=== PATIENT | female | born 1970 | race Caucasian/White ===

== ENCOUNTER → 2016-05-14 | Outpatient (REF) | payer OTHER ==
[~2016-05-14] MED LIST: /ATOR40TA PO; BYET10IN SC; COLA100C2; GLUC1000; IBUP800T; LISI5TAB; PERCOCET PO; TYLE325T5 PO; VICO5TAB; ZOCO40TA; aleve PO; byetta; yaz PO
== END ==
LOC: M SFHCLERA 13:41
PROVIDERS: ATTEND Physician Assistant
DX: J02.9 Acute pharyngitis, unspecified (principal)

== ENCOUNTER 2017-02-07 18:04 | Emergency (ER) | payer OTHER ==
[~2017-02-07] VITALS: Ht 167.6 cm; Wt 66.8 kg
[2017-02-07 18:39] LABS: BASO # 0.1 10^3/uL (0.0-0.2); BASO % 0.6 % (0.0-1.0); EOS # 0.1 10^3/uL (0.0-0.50); EOS % 0.7 % (0.0-3.0); IMMATURE GRANULOCYTE % 0.3 % (0-0); LYMPH # 2.8 10^3/uL (1.5-4.5); LYMPH % 28.1 % (24.0-44.0); MEAN CORPUSCULAR HEMOGLOBIN 29.6 pg (27.0-33.0); MEAN CORPUSCULAR HGB CONC 33.4 g/dl (32.0-36.5); MEAN CORPUSCULAR VOLUME 88.7 fl (80.0-96.0); MONO # 0.7 10^3/uL (0.0-0.8); MONO % 6.7 % (0.0-5.0); NEUTROPHILS # 6.4 10^3/uL (1.8-7.7); NEUTROPHILS % 63.6 % (36.0-66.0); PLATELET COUNT, AUTOMATED 306 10^3/uL (150-450); RED CELL DISTRIBUTION WIDTH 12.9 % (11.5-14.5)
[2017-02-07 18:41] LABS: ADD MORPHOLOGY? NO
[2017-02-07] MEDS ORDERED: GLIP5TAB8 PO (18:59)
[2017-02-07] MEDS ORDERED: METF500T4 PO (18:59)
[2017-02-07] MEDS ORDERED: INVO300T PO (18:59)
[2017-02-07] MEDS ORDERED: TYLE325T5 PO (18:59)
[2017-02-07 19:17] LABS: ANION GAP 8 MEQ/L (8-16); BLOOD UREA NITROGEN 15 MG/DL (7-18); CALCIUM LEVEL 9.4 MG/DL (8.5-10.1); CARBON DIOXIDE LEVEL 28 MEQ/L (21-32); CHLORIDE LEVEL 101 MEQ/L (98-107); CREATININE FOR GFR 0.62 MG/DL (0.55-1.02); GLOMERULAR FILTRATION RATE > 60.0 (>58); GLUCOSE, FASTING 130 MG/DL (70-105); POTASSIUM SERUM 3.8 MEQ/L (3.5-5.1); SODIUM LEVEL 137 MEQ/L (136-145)
[2017-02-07] MEDS ORDERED: HALOPERIDOL 5 MG/ML VIAL (J1630) IV STA (20:41)
[2017-02-07] MEDS ORDERED: diphenhydrAMINE INJ 50MG/ML VIAL (J1200) IV STA ×2 (20:41→21:53)
[2017-02-07] MEDS ORDERED: NS 1,000 ML IV ONE (20:45)
[2017-02-07] MEDS ORDERED: ISOVUE-370 76% 100ML VIAL (Q9967) As Ordered ONE (23:26)
--- NOTE | 2017-02-08 00:20 | REPUSA ---
CLINICAL HISTORY: Vertigo. TECHNIQUE: Multiple axial CT images were obtained through brain without and with IV contrast material . COMMENTS: The study shows normal configuration of sella turcica. There are no intra or extra-axial collections. There is no mass effect or midline shift. There is no evidence of hematoma formation. No hydrocephal us is present. The ventricles are symmetrical. There is no parenchymal atrophy. No abnormal calcifications are prese nt. No significant abnormalities are seen either in the posterior fossa or supratentorial compartment . Post contrast images demonstrate no evidence for abnormal enhancement. IMPRESSION: Normal study. Thank you for your kind referral of this patient.
[2017-02-08 01:26] VITALS: BP 115/58
--- NOTE | 2017-02-09 05:58 | ECGEPIP ---
Stationary ECG Study [facility] - ED Test Date: 2017-02-07 Pat Name: RAUDEL SILVA Department: Room: - Gender: F Quarter Trimmer: michelle : 1970 Requested By: JASPREET Pond Order Number: [id number] Reading MD: Cade Duran Measurements Intervals [place] Rate: 87 P: 36 CA: 193 QRS: -3 QRSD: 97 T: 5 QT: 375 QTc: 452 Interpretive Statements SINUS RHYTHM POSSIBLE ANTERIOR MYOCARDIAL INFARCTION, PROBABLY OLD SIMILAR TO 04/12/15 Electronically Signed On 02-09-2017 5:57:56 EDT by Cade Duran
== END 2017-02-08 01:30 | disposition home or self-care (01) ==
LOC: M ED 18:04
DX: H81.10 Benign paroxysmal vertigo, unspecified ear (principal); E11.9 Type 2 diabetes mellitus without complications; Z79.899 Other long term (current) drug therapy; Z79.84 Long term (current) use of oral hypoglycemic drugs
CPT/HCPCS: 70470; 80048; 82550; 82553; 85025; 93005; 93041; 94760; 96361; 96374; 96375; 96376; 99285; J1200; J1630; Q9967

== ENCOUNTER → 2017-10-20 | Outpatient (CLI) | payer OTHER | LOC: M WUC 14:50 | DX: M79.671 Pain in right foot (principal) | CPT/HCPCS: 73630 ==

== ENCOUNTER 2017-10-22 18:17 | Emergency (ER) | payer OTHER | END 2017-10-22 23:07 | disposition home or self-care (01) | LOC: M ED 18:17 | DX: S99.921A Unspecified injury of right foot, initial encounter (principal); W22.09XA Striking against other stationary object, initial encounter; Y92.89 Other specified places as the place of occurrence of the external cause; I10 Essential (primary) hypertension; E11.9 Type 2 diabetes mellitus without complications; R51 Headache; Z79.899 Other long term (current) drug therapy; Z79.84 Long term (current) use of oral hypoglycemic drugs | CPT/HCPCS: 73630 ==

== ENCOUNTER → 2018-02-13 | Outpatient (CLI) | payer OTHER | LOC: M WUC 08:52 | DX: S50.01XA Contusion of right elbow, initial encounter (principal); X58.XXXA Exposure to other specified factors, initial encounter; Y92.9 Unspecified place or not applicable | CPT/HCPCS: 73080 ==

== ENCOUNTER 2020-05-25 17:37 | Emergency (ER) | payer OTHER ==
[~2020-05-25] VITALS: Ht 167.6 cm; Wt 81.2 kg
[~2020-05-25 17:37] MED LIST changes: -/ATOR40TA PO; +GLIP5TAB8 PO; +INVO300T PO; +JANU100T; +LIPI1TAB2 PO; +METF-838 PO; +OXYC1TAB23 PO; -PERCOCET PO
--- OUTSIDE RECORDS SUMMARY | 2020-05-25 17:46 | CCD ---
Author Author [facility] Organization [facility] Address Unknown Phone Unavailable Care Team Providers Care Systems Software Specialist Name Role Phone MARIUSZRE Unavailable Unavailable TONTARSGENE G ROSI PA Unavailable Unavailable TONTARSGENE G ROSI PA Unavailable Unavailable TONTARSGENE G ROSI PA Unavailable Unavailable TONTARSGENE G ROSI PA Unavailable Unavailable TONTARSKI G ROSI PA Unavailable Unavailable TONTARSGENE G ROSI PA Unavailable Unavailable TONTARSGENE G ROSI PA Unavailable Unavailable TONTARSGENE G ROSI PA Unavailable Unavailable TONTARSKI, G ROSI PA Unavailable Unavailable TONTARSGENE, G ROSI PA Unavailable Unavailable TONTARSKI, G ROSI PA Unavailable Unavailable TONTARSGENE, G ROSI PA Unavailable Unavailable TONTARSGENE, G ROSI PA Unavailable Unavailable TONTARSGENE, G ROSI PA Unavailable Unavailable TONTARSGENE, G ROSI PA Unavailable Unavailable TONTARSGENE, G ROSI PA Unavailable Unavailable TONTARSGENE, G ROSI PA Unavailable Unavailable TONTARSGENE, G ROSI PA Unavailable Unavailable TONTARSGENE, G ROSI PA Unavailable Unavailable TONTARSGENE, G ROSI PA Unavailable Unavailable TONTARSGENE, G ROSI PA Unavailable Unavailable TONTARSGENE, G ROSI PA Unavailable Unavailable TONTARSGENE, G ROSI PA Unavailable Unavailable TONTARSGENE, G ROSI PA Unavailable Unavailable TONTARSGENE, G ROSI PA Unavailable Unavailable TONTARSGENE, G ROSI PA Unavailable Unavailable TONTARSGENE, G ROSI PA Unavailable Unavailable TONTARSGENE, G ROSI PA Unavailable Unavailable TONTARSGENE, G ROSI PA Unavailable Unavailable TONTARSGENE, G ROSI PA Unavailable Unavailable TONTARSGENE, G ROSI PA Unavailable Unavailable TONTARSGENE, G ROSI PA Unavailable Unavailable TONTARSGENE, G ROSI PA Unavailable Unavailable TONTARSGENE, G ROSI PA Unavailable Unavailable TONTARSGENE, G ROSI PA Unavailable Unavailable TONTARSGENE, G ROSI PA Unavailable Unavailable TONTARSGENE, G ROSI PA Unavailable Unavailable TONTARSGENE, G ROSI PA Unavailable Unavailable TONTARSGENE, G ROSI PA Unavailable Unavailable TONTARSGENE, G ROSI PA Unavailable Unavailable TONTARSGENE, G ROSI PA Unavailable Unavailable TONTARSGENE, G ROSI PA Unavailable Unavailable TONTARSGENE, G ROSI PA Unavailable Unavailable TONTARSGENE, G ROSI PA Unavailable Unavailable TONTARSGENE, G ROSI PA Unavailable Unavailable TONTARSGENE, G ROSI PA Unavailable Unavailable TONTARSGENE, G ROSI PA Unavailable Unavailable TONTARSGENE, G ROSI PA Unavailable Unavailable TONTARSGENE, G ROSI PA Unavailable Unavailable TONTARSGENE, G ROSI PA Unavailable Unavailable TONTARSGENE, G ROSI PA Unavailable Unavailable TONTARSGENE, G ROSI PA Unavailable Unavailable TONTARSGENE, G ROSI PA Unavailable Unavailable TONTARSGENE, G ROSI PA Unavailable Unavailable TONTARSGENE, G ROSI PA Unavailable Unavailable TONTARSGENE, G ROSI PA Unavailable Unavailable TONTARSGENE, G ROSI PA Unavailable Unavailable TONTARSKI, G ROSI PA Unavailable Unavailable TONTARSGENE, G ROSI PA Unavailable Unavailable TONTARSGENE, G ROSI PA Unavailable Unavailable TONTARSGENE, G ROSI PA Unavailable Unavailable TONTARSGENE, G ROSI PA Unavailable Unavailable TONTARSGENE, G ROSI PA Unavailable Unavailable TONTARSGENE, G ROSI PA Unavailable Unavailable TONTARSGENE, G ROSI PA Unavailable Unavailable TONTARSGENE, G ROSI PA Unavailable Unavailable TONTARSGENE, G ROSI PA Unavailable Unavailable TONTARSGENE, G ROSI PA Unavailable Unavailable TONTARSGENE, G ROSI PA Unavailable Unavailable TONTARSGENE, G ROSI PA Unavailable Unavailable TONTARSGENE, G ROSI PA Unavailable Unavailable TONTARSGENE, G ROSI PA Unavailable Unavailable TONTARSGENE, G ROSI PA Unavailable Unavailable TONTARSGENE, G ROSI PA Unavailable Unavailable TONTARSGENE, G ROSI PA Unavailable Unavailable TONTARSGENE, G ROSI PA Unavailable Unavailable TONTARSGENE, G ROSI PA Unavailable Unavailable TONTARSGENE, G ROSI PA Unavailable Unavailable TONTARSGENE, G ROSI PA Unavailable Unavailable TONTARSGENE, G ROSI PA Unavailable Unavailable TONTARSGENE, G ROSI PA Unavailable Unavailable TONTARSGENE, G ROSI PA Unavailable Unavailable TONTARSGENE, G ROSI PA Unavailable Unavailable TONTARSGENE, G ROSI PA Unavailable Unavailable TONTARSGENE, G ROSI PA Unavailable Unavailable TONTARSGENE, G ROSI PA Unavailable Unavailable TONTARSGENE, G ROSI PA Unavailable Unavailable TONTARSGENE, G ROSI PA Unavailable Unavailable TONTARSGENE, G ROSI PA Unavailable Unavailable TONTARSGENE, G ROSI PA Unavailable Unavailable TONTARSGENE, G ROSI PA Unavailable Unavailable TONTARSGENE, G ROSI PA Unavailable Unavailable TONTARSKI, G ROSI PA Unavailable Unavailable TONMARV, G ROSI PA Unavailable Unavailable MARIE, CHRIS PA Unavailable Unavailable MARIE, CHRIS PA Unavailable Unavailable MARIE, CHRIS PA Unavailable Unavailable MARIE, CHRIS PA Unavailable Unavailable MARIE, CHRIS PA Unavailable Unavailable MARIE, CHRIS PA Unavailable Unavailable MARIE, CHRIS PA Unavailable Unavailable MARIE, CHRIS PA Unavailable Unavailable MARIE, CHRIS PA Unavailable Unavailable MARIE, CHRIS PA Unavailable Unavailable MARIE, CHRIS PA Unavailable Unavailable MARIE, CHRIS PA Unavailable Unavailable MARIE, CHRIS PA Unavailable Unavailable MARIE, CHRIS PA Unavailable Unavailable MARIE, CHRIS PA Unavailable Unavailable MARIE, CHRIS PA Unavailable Unavailable MARIE, CHRIS PA Unavailable Unavailable MARIE, CHRIS PA Unavailable Unavailable MARIE, CHRIS PA Unavailable Unavailable MARIE, CHRIS PA Unavailable Unavailable MARIE, CHRIS PA Unavailable Unavailable MARIE, CHRIS PA Unavailable Unavailable MARIE, CHRIS PA Unavailable Unavailable MARIE, CHRIS PA Unavailable Unavailable MARIE, CHRIS PA Unavailable Unavailable MARIE, CHRIS PA Unavailable Unavailable MARIE, CHRIS PA Unavailable Unavailable MARIE, CHRIS PA Unavailable Unavailable MARIE, CHRIS PA Unavailable Unavailable MARIE, CHRSI PA Unavailable Unavailable MARIE, CHRIS PA Unavailable Unavailable MARIE, CHRIS PA Unavailable Unavailable MARIE, CHRIS PA Unavailable Unavailable MARIE, CHRIS PA Unavailable Unavailable MARIE, CHRIS PA Unavailable Unavailable JAVIER LYLES Unavailable Unavailable WILLY CELESTE M.D. Unavailable WILLY CELESTE M.D. Unavailable WILLY CELESTE M.D. Unavailable Re-disclosure Warning The records that you are about to access may contain information from federally-assisted alcohol or drug abuse programs. If such information is present, then the following federally mandated warning applies: This information has been disclosed to you from records protected by federal confidentiality rules (42 CFR part 2). The federal rules prohibit you from making any further disclosure of this information unless further disclosure is expressly permitted by the written consent of the person to whom it pertains or as otherwise permitted by 42 CFR part 2. A general authorization for the release of medical or other information is NOT sufficient for this purpose. The Federal rules restrict any use of the information to criminally investigate or prosecute any alcohol or drug abuse patient.The records that you are about to access may contain highly sensitive health information, the redisclosure of which is protected by Article 27-F of the [facility] Public Health law. If you continue you may have access to information: Regarding HIV / AIDS; Provided by facilities licensed or operated by the [facility] Office of Mental Health; or Provided by the [facility] Office for People With Developmental Disabilities. If such information is present, then the following [facility] mandated warning applies: This information has been disclosed to you from confidential records which are protected by state law. State law prohibits you from making any further disclosure of this information without the specific written consent of the person to whom it pertains, or as otherwise permitted by law. Any unauthorized further disclosure in violation of state law may result in a fine or mcc sentence or both. A general authorization for the release of medical or other information is NOT sufficient authorization for further disc losure. Allergies and Adverse Reactions Type Description Substance Reaction Status Data Source(s ) Drug Class NO KNOWN ALLERGIES NO KNOWN ALLERGIES [facility] Family History Family Member Name Family Member Gender Family Member Status Date o f Status Description Data Source(s) Unknown Unknown Problem MEDENT ([facility] pgf Unknown Male Problem MEDENT ([facility]) Encounters Encounter Providers Location Date Indications Data Source(s ) Outpatient Attender: WILLY CELESTE M.D.Stenotype Operator: JOAQUIN PEÑALOZA 03/15/2020 11:08:00 AM [facility] 03/15/2020 12:08:00 PM [facility] Outpatient Attender: CHRIS PEÑALOZA 10/21/2019 12:00:0 0 AM [facility] Outpatient Attender: JAVIER LYLES 08/21/2019 12:00:00 A M [facility] Outpatient Attender: RE VEEReferrer: ROSI PEÑALOZA [id number] 07/16/2019 12:00:00 AM [facility] Medications Medication Brand Name Start Date Product Form Dose Route Admi nistrative Instructions Pharmacy Instructions Status Indications Reaction Description Data Source(s) Insulin Pen Needle 31G X 6 MM [id number] 07/16/2019 12:00:00 AM EDT active Type 2 diabetes mellitus with hyperglycemia, without long-term current use of insulin Use as directed. daily [facility] Type 2 diabetes mellitus with hyperglyce tristen, without long-term current use of insulin 3 ML Insulin Glargine 100 UNT/ML Pen Inj jorge Insulin Glargine 100 UNIT/ML Subcutaneous Solution Pen-injector (Lantus SoloStar) Insulin Glargine 100 UNIT/ML Subcutaneous Solution Pen-injector (Lantus SoloStar) 07/16/2019 12:00:00 AM EDT active Type 2 elie betes mellitus with hyperglycemia, without long-term current use of insulin 16 units at night [facility] Type 2 diabetes mellitus with hyperglyce tristen, without long-term current use of insulin 3 ML Insulin Glargine 100 UNT/ML Pen Inj jorge Insulin Glargine 100 UNIT/ML Subcutaneous Solution Pen-injector (Lantus SoloStar) Insulin Glargine 100 UNIT/ML Subcutaneous Solution Pen-injector (Lantus SoloStar) 07/16/2019 12:00:00 AM EDT aborted Type 2 elie betes mellitus with hyperglycemia, without long-term current use of insulin 16 units at night [facility] Type 2 diabetes mellitus with hyperglyce tristen, without long-term current use of insulin 24 HR Metformin hydrochloride 500 MG Ext ended Release Oral Tablet metformin (GLUCOPHAGE-XR) 500 MG 24 hr tablet metformin (GLUCOPHAGE-XR) 500 MG 24 hr tablet 500 mg Oral aborted Take 500 mg by mouth Two times daily with meals [facility] Insurance Providers Payer name Policy type / Coverage type Policy ID Covered libertarian ID Covered libertarian's relationship to ibarra Policy Ibarra Plan Information [employer] [id number] Self [id number] [id number] Family Dependent [id number] [facility] Services () Workers Compensation [id number] Self [id number] [employer] [id number] S [id number] [employer] [id number] Family Dependent [id number] [employer] [id number] Family Dependent [id number] [employer] [id number] Family Dependent [id number] [employer] [place] [id number] [employer] [id number] Family Dependent [id number] [employer] [place] [id number] S [id number] [place] [employer] - O/P [id number] [facility] CLAIMS CRISELDA-O/P [id number] Problems, Conditions, and Diagnoses Code Display Name Description Problem Type Effective Dates Data Source(s) Z0184 Encounter for antibody response examinat ion Encounter for antibody response examination Diagnosis 03/15/2020 11:08:00 AM [facility] Surgeries/Procedures Procedure Description Date Indications Data Source(s) POCT HEMOGLOBIN A1C, DOCKED POCT HEMOGLOBIN A1C, DOCKED Routine 07/16/2019 8:41 AM EDT 07/16/2019 12:41:00 PM EDT [facility] POCT GLUCOSE, DOCKED POCT GLUCOSE, DOCKED Routine 07/16/2019 8:39 AM EDT 07/16/2019 12:39:00 PM [facility] Results ID Date Data Source [id number] 04/13/2020 12:00:00 AM EST [facility] Name Value Range Interpretation Code Description Data Faye rce(s) Supporting Document(s) SARS coronavirus 2 RNA [Presence] in Res piratory specimen by SCOTT with probe detection [facility] This lab was ordered by Yaw Beal and reported by [facility]. ID Date Data Source [id number] 03/17/2020 08:32:00 PM [facility] Name Value Range Interpretation Code Description Data Faye rce(s) Supporting Document(s) Varicella zoster virus IgM Ab [Units/volume] in Serum by Immunoassay <0.91 index 0.00-0.90 [facility] Negative <0.91 Borderline 0.91 - 1.09 Positive >1.09 ID Date Data Source [id number] 03/17/2020 08:29:00 AM [facility] Name Value Range Interpretation Code Description Data Faye rce(s) Supporting Document(s) Measles virus IgG Ab [Units/volume] in Serum by Immunoassay <13.5 AU/mL Immune >16.4 L [facility] Negative <13.5 Equivocal 13.5 - 16.4 Positive >16.4 Presence of antibodies to Rubeola is presumptive evidence of immunity except when acute infection is suspected. ID Date Data Source [id number] 03/17/2020 08:29:00 AM [facility] Name Value Range Interpretation Code Description Data Faye rce(s) Supporting Document(s) Mumps virus IgG Ab [Units/volume] in Serum by Immunoassay <9 .0 AU/mL Immune >10.9 L [facility] Negative <9.0 Equivocal 9.0 - 10.9 Positive >10.9 A positive result generally indicates past exposure to Mumps virus or previous vaccination. ID Date Data Source [id number] 03/15/2020 02:47:00 PM [facility] Value Range Interpretation Code Description Data Faye rce(s) Supporting Document(s) Rubella virus IgG Ab [Units/volume] in Serum 34.010 IU/ml [facility] REACTI VE \BLDo\Rubella Immunity Interpretation\BLDx\ Non-reactive: <10 IU/mL Reactive: greater than or equal to 10 IU/mL A reactive result is presumptive evidence of immunity to Rubella, except when acute infection is suspected. ID Date Data Source [id number] 03/23/2020 06:36:00 AM [facility] Value Range Interpretation Code Description Data Faye rce(s) Supporting Document(s) Varicella zoster virus IgG Ab [Units/volume] in Serum by Imm unoassay 671 index Immune >165 [facility] Negative <135 Equivocal 135 - 165 Positive >165 A positive result generally indicates exposure to the pathogen or administration of specific immunoglobulins, but it is not indication of active infection or stage of disease. ID Date Data Source [id number] 07/16/2019 11:30:43 AM [facility] Name Value Range Interpretation Code Description Data Faye rce(s) Supporting Document(s) Albumin [Mass/volume] in Serum or Plasma by Bromocresol green (BCG) dye binding method 4.4 g/dL 3.5-5.2 [facility] Bil[facility].total [Mass/volume] in Serum or Plasma 0.2 mg/dL <1.2 [facility] Calcium [Mass/volume] in Serum or Plasma 10.0 mg/dL 8.6-10.0 [facility] Chloride [Moles/volume] in Serum or Plasma 99 mmol/L 98-107 [facility] Creatinine [Mass/volume] in Serum or Plasma 0.67 mg/dL 0.50-0.90 [facility] Glucose [Mass/volume] in Serum or Plasma 262 mg/dL 70-140 H [facility] Alkaline phosphatase [Enzymatic activity/volume] in Serum or Plasma 138 U/L 35-104 H [facility] Potassium [Moles/volume] in Serum or Plasma 4.6 mmol/L 3.4-5.1 [facility] Protein [Mass/volume] in Serum or Plasma 7.7 g/dL 6.4-8.3 [facility] Sodium [Moles/volume] in Serum or Plasma 133 mmol/L 136-145 L [facility] Aspartate aminotransferase [Enzymatic activity/volume] in Serum or Plasma 13 U/L <32 [facility] Urea nitrogen [Mass/volume] in Serum or Plasma 19 mg/dL 6-20 [facility] Osmolality of Serum or Plasma by calculation 288 mosm/kg 275-300 [facility] Creatinine/Urea nitrogen [Mass Ratio] in Serum or Plasma 29 [facility] Bicarbonate [Moles/volume] in Serum 22 mmol/L 22-29 [facility] Alanine aminotransferase [Enzymatic activity/volume] in Seru m or Plasma 30 U/L <33 [facility] Anion gap 3 in Serum or Plasma 12 mmol/L 8-15 [facility] Albumin/Globulin [Mass Ratio] in Serum or Plasma 1.3 [facility] Glomerular filtration rate/1.73 sq M pre dicted among non-blacks [Volume Rate/Area] in Serum or Plasma by Creatinine-based formula (MDRD) >6 0 [facility] Glomerular filtration rate/1.73 sq M pre dicted among blacks [Volume Rate/Area] in Serum or Plasma by Creatinine-based formula (MDRD) >60 [facility] ID Date Data Source [id number] 07/16/2019 11:14:08 AM [facility] Name Value Range Interpretation Code Description Data Faye rce(s) Supporting Document(s) Microalbumin [Mass/volume] in Urine [facility] Creatinine [Mass/volume] in Urine 26.0 mg/dl [facility] Albumin/Creatinine [Mass Ratio] in Urine <20.0 [facility] ID Date Data Source [id number] 07/16/2019 09:36:08 AM EDT [facility] Name Value Range Interpretation Code Description Data Faye rce(s) Supporting Document(s) Progress Note [facility] [id number]/ROBbdRPHkj7MwHBorMUt2TKjlCNWqL9AwNQD4rL4gWGL2NHbOAfOeFcEeMcUu lbm QiWdsVQhLaMVIuYtmMLgYeRCveZbcgfUDdZS4NcUD8UYLlA19iHOHlCDZpL1NgVAW2KzX+Hr1YTXVpgQ JqXX1HCaxN8KiMcdsNKB2TvS/HdGFPJ2NnFmFVgtYYVZnJVNEgulCojxQCEJdAbluKs15u1++cJKs8+s MAv8EhJNjLeDD2CH72KzuO9d+/qtJ1ItgY/B246RJl +iPx17+S0YDsP0cMB0ioysIXHIfLxpKpWY7bCT7Sy8DoXtqft3MG7auTp2KlVQinV9s4nahi1tqtbz9A 2kF62L1ol0irSR5/Or+6EMYPpePLzz//LHr/EZ2e+BqbziE4Om5xD8y0ofUIXLmFSABvc8F1b7KJXS0c Cq91K9By5bFgpnoQYgnfvL55eAzafcRpb7VkWnV4nW s/wt5dCJxSo1CYh6MMhtlKXCeX/Nrs704p8Wl5tZgx1S0Trq8degwc3id7JdsZqewOChbJT1noLMEyqu kKczzJEoSVNKWByDXudvpj4WlB/ht1NRXJ99BV5/w0HkTI0EVny/CovrfjxncKigtaWLTQ1y3dK4DGXY Xi5DZgIrj9ntY98+BxP68tJ4In42/x0eWuAUptRm13 UD6P48OpmkAyhbfcJMKlh7cCheBmNO8ueFJFD7WH24oN7SU6onD8cciVa9Dx1TlIyIixVqJ+fFTk9eNd jMHJ83LWbVM4t7eWEMWr54yP9l0b7TDKDOdcWIqQK1GjhpoZS3q91YIFTjLsgPNGWhwYK13utHKSg38T 4zPF6xMczjjO1IPtS/bWCJxPz8DvbbSPLsp5IJiVXp F6eSH80XAaMbLe0GFNp5q9EyRM5eDfIG9XeasfrxFpvrWNh+paula/UwiOBRejfC9bA4sIs2g6UG8qcz/D [file] ICAgICAgICAgICAgICAgICAgICAgICAgICAgICAgICAgICAgICAgICAgICAgICAgICAgICAgICAgICAg ICAgICAgICAgICAgICAgDQogICAgICAgICAgICAgICAgICAgICAgICAgICAgICAgICAgICAgICAgICAg ICAgICAgICAgICAgICAgICAgICAgICAgICAgICAgIC AgICAgICAgICAgICAgICAgICAgICAgICAgDQogICAgICAgICAgICAgICAgICAgICAgICAgICAgICAgIC AgICAgICAgICAgICAgICAgICAgICAgICAgICAgICAgICAgICAgICAgICAgICAgICAgICAgICAgICAgIC AgICAgICAgDQogICAgICAgICAgICAgICAgICAgICAg ICAgICAgICAgICAgICAgICAgICAgICAgICAgICAgICAgICAgICAgICAgICAgICAgICAgICAgICAgICAg ICAgICAgICAgICAgICAgICAgDQogICAgICAgICAgICAgICAgICAgICAgICAgICAgICAgICAgICAgICAg ICAgICAgICAgICAgICAgICAgICAgICAgICAgICAgIC AgICAgICAgICAgICAgICAgICAgICAgICAgICAgDQogICAgICAgICAgICAgICAgICAgICAgICAgICAgIC AgICAgICAgICAgICAgICAgICAgICAgICAgICAgICAgICAgICAgICAgICAgICAgICAgICAgICAgICAgIC AgICAgICAgICAgDQogICAgICAgICAgICAgICAgICAg ICAgICAgICAgICAgICAgICAgICAgICAgICAgICAgICAgICAgICAgICAgICAgICAgICAgICAgICAgICAg ICAgICAgICAgICAgICAgICAgICAgDQogICAgICAgICAgICAgICAgICAgICAgICAgICAgICAgICAgICAg ICAgICAgICAgICAgICAgICAgICAgICAgICAgICAgIC AgICAgICAgICAgICAgICAgICAgICAgICAgICAgICAgDQogICAgICAgICAgICAgICAgICAgICAgICAgIC AgICAgICAgICAgICAgICAgICAgICAgICAgICAgICAgICAgICAgICAgICAgICAgICAgICAgICAgICAgIC AgICAgICAgICAgICAgDQogICAgICAgICAgICAgICAg ICAgICAgICAgICAgICAgICAgICAgICAgICAgICAgICAgICAgICAgICAgICAgICAgICAgICAgICAgICAg LVSbMTLwWJEjDLQtHJMoKNBnYAFbAOFsYKt1K1qtVPLrOFXwTQ9kKLo5Lw3+XDmEJjDdNSJ4iwEzuU8Z OS7jp6EbQTnfQAVnd1DzAAt9II4PETUlULbvQP2EFH wgvk1EXTZtEDDtuMUJt5bdZuQxQUS1PRGhMueeZP5CVBYgL1puamMiRQIrNALNNOyrVIENARltULMAVG AxPYOlIlUaOvXxUMCyEY0TRWFqP822pxToVZ0GTf1JOnNqPW9emp2WCcnaANDaQdcLJlc1TEniJE5DkX QkrTJmEIDwJCIBVqVxB6pjr2DkHnvnBXZCLTxkQA8U m3DutDQnOBj+Nw3JRW8ai5SkTFaiAWXhLA9hcs0EWJaVEpEgS5FmtRfbJCDpn7heMFPeTD7mpPZzTAX2 GCqtboKfycegD12zLhlmAGVgDRZmKz7vQS2bJKZxMZQ8LaPvRGQOOL1QPEVkQJQayWAjDQTvFVNYWN7M EObiJVI5YEXuilFuxFZpLJiqMO1ESQAdxhHlPexcPR BSDQo+Wz2EHR6xa9AtHXfbYJZgFX8lkw9SITgLVrSrJ1Z7eSZlL0A2GYjxWc0JXFLeZBVyUdVtMAADVS oxFH2GBN1dtxZ7FE1FiVKwXOFfTLHilILxMQq2F34klXStWPjbWP2YCSF+Wilfredo+Nk8HKGHsDASjYTTdQr OoBBSCWlAnN0PiL6IIp4EiB9FwRS16eUlgfeChAFte VH1XOT9bMZHfYFNNAC3OkZRuaG1njkCuEqJlBXJYOaRxZ61pdKLwYMEqCTA6VJAvSh2BUKJzG5MjisJa tTfmnnInYLWrKJVXVK7KCCzgeoIxlLChbZoqST53sFvcCR4KBm9XNqHjWV9rtj9SfPQpVy0YAUZfRH3S GCPaDOCiNSZfLFO3ZEDpVvRrGLucAWIdDMAxLQQ9NJ EdMFMyJE8LReQgTMPuMgqnTZMpXRFaJIXrvu2UMNTsSHZbVEixEoTbXUJmDEOjIGcaOIIpQSBaQPD4PZ ZzRJEcMT9PRzWeASQqKRB7TeCvBHKeVYGksj6AHHCvUNKsXuX0JlExLMSqROLmUHfeRQQdKXW5OJQlGX ZfYDUhGX3YEaGnAQZnOPQ8XelkKAMbFBBtir4DUSNi NALgIWP2GyCyTDZoQBHwBQekIEWxOJR8Ajo6XYRfSGUkSW4NIeYyRVRvBCZsNSYtETOqLBUfwy7EYFVi JJSzBPE6ZJAaFMIeBXBnPEosYSEmNBMsUHC7CSNhFXCzCJ3DCcOcWZXvOSGbWvFyRGEdJJFeag7TPLWj CJFyVvE4EhZgSNJqTNOhLGniJQIpEVHdXcnhYZMaCU WmBJ5MAaKbKGOmYMS0QyXtABDsKSCqmg9FETYaQWXjFSBeXwFaUEZtEEHcZFyaPXXqVJK6LnW2DMXtGF KzOA1FYmEsSTRbFQM6NHCvNLOaVOVvfu7HTXQjFMKnFvD9KgBpDVUbZNQhGRiqWFXyKEH6GFM2EQQuQX JoXO6MGpAtJZCrNiI7ZbDpHTAcLVWgdm1FSKRzICLq JsLaGqItCIJdGWWuHVypAXVeWBX1YJrvTHHjAGIaWO9BClVwZBEdNcs8XmRkIPAyDPZtdt3KPNVnPFBh DCHrLeCqYLBmATPrOIgyQAPaZGG8GKY8QAGjIFYaNT8LThDwVSMlYznwOTGfWWBsZIPlaq1PfATuaMbq vp2QBAaHUq1EcHxtQXEdXHjhXe1obIXgVXYrAVZEOg 1FvlGtEVYxAQZYEKbzRQHqTGN9YbDbOFJaYyAgNbA1ItYxPGH3DGDmIYV9ZGVaUvujOwL7WBx0NAZ0TD ErEeW9LnykWPNuNMaiKTUfJxg4YECuCPC+XG7hINs+Et1At3GjerL8coPnHNtyIXC0QU5WRVASP6TUEc == ID Date Data Source [id number] 07/16/2019 08:47:52 AM EDT [facility] Name Value Range Interpretation Code Description Data Faye rce(s) Supporting Document(s) Hemoglobin A1c/Hemoglobin.total in Blood 12.9 % 4.0-6.0 H [facility] Glucose mean value [Mass/volume] in Blood Estimated fr om glycated hemoglobin 324 mg/dL <126 H [facility] ID Date Data Source [id number] 07/16/2019 08:42:08 AM EDT [facility] Name Value Range Interpretation Code Description Data Faye rce(s) Supporting Document(s) Glucose [Mass/volume] in Capillary blood by Glucometer 330 mg/dL 70- 140 H [facility] Procedure Social History Code Duration Value Status Description Data Source(s ) Alcohol intake 07/16/2019 12:00:00 AM EDT Ex-drinker (finding) comp leted Ex- drinker (finding) [facility] Smoking 07/16/2019 12:00:00 AM EDT Never smoker completed Never s [facility] Patient Treatment Plan of Care Planned Activity Planned Date Details Description Data Source (s) 3 ML Insulin Glargine 100 UNT/ML Pen Injector 07/16/2019 12:00:00 A M [facility] Insulin Pen Needle 31G X 6 MM 07/16/2019 12:00:00 AM T [facility] 3 ML Insulin Glargine 100 UNT/ML Pen Injector 07/16/2019 12:00:00 A M [facility] 24 HR Metformin hydrochloride 500 MG Extended Release Oral Tablet [facility]
--- NOTE | 2020-05-25 18:32 | REPVR ---
PROCEDURE INFORMATION: Exam: CT Head Without Contrast Exam date and time: 05/25/2020 6:11 PM Age: 50 years old Clinical indication: Pain; Headache; Additional info: Fall TECHNIQUE: Imaging protocol: Computed tomography of the head without contrast. Axial and coronal reformatted images were created and reviewed. Radiation optimization: All CT scans at this facility use at least one of these dose optimization techniques: automated exposure control; mA and/or kV adjustment per patient size (includes targeted exams where dose is matched to clinical indication); or iterative reconstruction. COMPARISON: CT Head without contrast 07/17/2018 9:54 AM FINDINGS: Brain: No CT evidence of acute intracranial hemorrhage or acute territorial infarction. No significant mass effect or midline shift. Basal cisterns patent. Cerebral ventricles: Normal in size and configuration. Bones/joints: No acute osseous abnormality. Paranasal sinuses: Unremarkable. No fluid levels. Mastoid air cells: Grossly unremarkable. Soft tissues: Grossly unremarkable. IMPRESSION: No CT evidence of acute intracranial pathology. Electronically signed by: Ramy Burger On 05/25/2020 18:32:03 PM
--- NOTE | 2020-05-25 18:34 | REPVR ---
PROCEDURE INFORMATION: Exam: CT Cervical Spine Without Contrast Exam date and time: 05/25/2020 6:11 PM Age: 50 years old Clinical indication: Injury or trauma; Fall; Blunt trauma TECHNIQUE: Imaging protocol: Computed tomography images of the cervical spine without contrast. Axial, coronal and sagittal reformatted images were created and reviewed. Radiation optimization: All CT scans at this facility use at least one of these dose optimization techniques: automated exposure control; mA and/or kV adjustment per patient size (includes targeted exams where dose is matched to clinical indication); or iterative reconstruction. COMPARISON: No relevant prior studies available. FINDINGS: Bones/joints: Mild reversal of the normal cervical lordosis. No CT evidence of acute fracture, dislocation or subluxation. Alignment anatomic. Minimal levoscoliosis. Vertebral body heights maintained. Discs/Spinal canal/Neural foramina: Mild multilevel spondylosis, most pronounced at C5-C6, where there is mild resultant spinal canal narrowing. No significant neural foraminal stenosis. Lungs: Grossly unremarkable. Soft tissues: Grossly unremarkable. IMPRESSION: 1. No CT evidence of acute cervical spine traumatic injury. 2. Additional findings, as above. Electronically signed by: Ramy Burger On 05/25/2020 18:33:56 PM
--- NOTE | 2020-05-25 19:47 | REP ---
INDICATION: fall. COMPARISON: No comparison study. TECHNIQUE: Five views. A navicular view is included. FINDINGS: Five views of the right wrist demonstrate overall normal mineralization. Joint spaces are preserved. No carpal fracture is seen. There is old appearing mild posttraumatic deformity of the 5th metacarpal. Navicular views unremarkable. IMPRESSION: No acute fracture seen. Question old 5th metacarpal fracture. <Electronically signed by Gonzalo Ibrahim > 05/25/201943
--- NOTE | 2020-05-25 19:49 | REP ---
INDICATION: fall. COMPARISON: None. TECHNIQUE: Three views. FINDINGS: Three views of the right shoulder demonstrate normal alignment of the glenohumeral and acromioclavicular joints. No fracture or subluxation is seen. Periarticular soft tissues are unremarkable. No rib fracture is seen. IMPRESSION: Negative right shoulder radiographs. <Electronically signed by Gonzalo Ibrahim > 05/25/201945
--- NOTE | 2020-05-25 19:49 | REP ---
INDICATION: Fall injury. COMPARISON: Comparison right elbow radiographs are from February 13, 2018.. TECHNIQUE: Four views. FINDINGS: Four views of the right elbow demonstrate mild medial and lateral epicondylar spurring. There is a small accessory ossicle adjacent to the medial epicondyle which is unchanged. No fracture,. No fracture or subluxation is seen. There is no evidence of joint effusion.. IMPRESSION: No acute bony abnormality. Mild medial and lateral epicondylar spurring.. <Electronically signed by Gonzalo Ibrahim > 05/25/201944
[2020-05-25 20:29] VITALS: BP 131/69
== END 2020-05-25 20:34 | disposition home or self-care (01) ==
LOC: M ED 17:37
DX: S50.01XA Contusion of right elbow, initial encounter (principal); S50.311A Abrasion of right elbow, initial encounter; S63.501A Unspecified sprain of right wrist, initial encounter; S43.401A Unspecified sprain of right shoulder joint, initial encounter; W00.0XXA Fall on same level due to ice and snow, initial encounter; Y92.241 Library as the place of occurrence of the external cause; Y93.9 Activity, unspecified; Y99.9 Unspecified external cause status; M25.721 Osteophyte, right elbow; M47.812 Spondylosis without myelopathy or radiculopathy, cervical region; M48.02 Spinal stenosis, cervical region; E11.9 Type 2 diabetes mellitus without complications; Z79.84 Long term (current) use of oral hypoglycemic drugs; Z79.899 Other long term (current) drug therapy

== ENCOUNTER 2021-09-14 08:55 | Emergency (ER) | payer OTHER, SELFPAY ==
[~2021-09-14] VITALS: Ht 167.6 cm; Wt 73.2 kg
[2021-09-14 13:05] VITALS: BP 140/77
[2021-09-14] MEDS ORDERED: BENZONATATE 100MG CAPSULE PO ONE (13:20)
[2021-09-14] MEDS ORDERED: KETOROLAC 60MG 2ML VIAL IM ONE (13:20)
[2021-09-14] MEDS ORDERED: PROAAER10 INH (13:21)
[2021-09-14] MEDS ORDERED: MUCI120T PO (13:21)
[2021-09-14] MEDS ORDERED: BENZ200C70 PO (13:21)
== END 2021-09-14 13:42 | disposition home or self-care (01) ==
LOC: M ED 08:55
DX: U07.1 COVID-19 (principal); E11.9 Type 2 diabetes mellitus without complications; Z79.84 Long term (current) use of oral hypoglycemic drugs; Z79.899 Other long term (current) drug therapy
CPT/HCPCS: 71045; 87428; 96372; 99283; J1885

== ENCOUNTER → 2022-02-10 | Outpatient (CLI) | payer OTHER, SELFPAY ==
[~2022-02-10] MED LIST changes: +BENZ200C70 PO; +MUCI120T PO; +PROAAER10 INH
== END ==
LOC: M RAD 15:42
PROVIDERS: ATTEND Physician Assistant
DX: R10.9 Unspecified abdominal pain (principal); R93.5 Abnormal findings on diagnostic imaging of other abdominal regions, including retroperitoneum

== ENCOUNTER → 2022-03-13 | Outpatient (CLI) | payer OTHER ==
[2022-03-13 09:50] LABS: CHOLESTEROL RISK RATIO 3.391 (<5); FREE T4 0.9 NG/DL (0.76-1.46); THYROID STIMULATING HORMONE 1.84 uIU/ML (0.358-3.740)
[2022-03-13 18:27] LABS: HEMOGLOBIN A1c 10.5 %
== END ==
LOC: M LAB 08:16
PROVIDERS: ATTEND Physician Assistant
DX: E11.9 Type 2 diabetes mellitus without complications (principal); E78.5 Hyperlipidemia, unspecified; R53.83 Other fatigue

== ENCOUNTER 2022-05-12 11:11 | Emergency (ER) | payer MEDICAID, OTHER ==
[~2022-05-12] VITALS: Ht 167.6 cm; Wt 74.6 kg
[2022-05-12 12:22] LABS: BASO # 0.1 10^3/uL (0.0-0.2); BASO % 0.7 % (0.0-1.0); EOS # 0.1 10^3/uL (0.0-0.5); EOS % 0.7 % (0.0-3.0); HEMATOCRIT 41.5 % (36.0-47.0); HEMOGLOBIN 13.9 g/dl (12.0-15.5); LYMPH # 1.9 10^3/uL (1.5-5.0); LYMPH % 27.5 % (24.0-44.0); MEAN CORPUSCULAR HEMOGLOBIN 29.7 pg (27.0-33.0); MEAN CORPUSCULAR HGB CONC 33.5 g/dl (32.0-36.5); MEAN CORPUSCULAR VOLUME 88.7 fl (80.0-96.0); MONO # 0.4 10^3/uL (0.0-0.8); MONO % 6.1 % (2.0-8.0); NEUTROPHILS # 4.5 10^3/uL (1.5-8.5); NEUTROPHILS % 64.4 % (36.0-66.0); PLATELET COUNT, AUTOMATED 257 10^3/uL (150-450); RED BLOOD COUNT 4.68 10^6/uL (4.00-5.40); WHITE BLOOD COUNT 6.9 10^3/uL (4.0-10.0)
[2022-05-12 12:34] LABS: INR 0.89; PROTHROMBIN TIME 12.2 SECONDS (12.5-14.5)
[2022-05-12 12:41] LABS: LIPASE 61 U/L (12-53)
[2022-05-12 12:43] LABS: BILIRUBIN,DIRECT 0.1 MG/DL (<0.4)
[2022-05-12 12:44] LABS: ALBUMIN 3.8 G/DL (3.2-5.2); ALKALINE PHOSPHATASE 130 U/L (46-116); ALT/SGPT 43 U/L (7.0-40); AST/SGOT 21 U/L (<34); BILIRUBIN,TOTAL 0.5 MG/DL (0.3-1.2); BLOOD UREA NITROGEN 17 MG/DL (9-23); CALCIUM LEVEL 9.3 MG/DL (8.5-10.1); CARBON DIOXIDE LEVEL 24 MMOL/L (20-31); CHLORIDE LEVEL 103 MMOL/L (98-107); CK-MB VALUE MASS < 1.0 NG/ML (<3.6); CPK CREATINE PHOSPHOKINASE 96 U/L (34-145); CREATININE FOR GFR 0.52 MG/DL (0.55-1.30); GLOMERULAR FILTRATION RATE > 60.0 (>51); GLUCOSE, FASTING 329 MG/DL (60-100); MB/CK RELATIVE INDEX 1.04 (< OR =4); POTASSIUM SERUM 4.3 MMOL/L (3.5-5.1); SODIUM LEVEL 137 MMOL/L (136-145); TOTAL PROTEIN 6.9 G/DL (5.7-8.2)
[2022-05-12] MEDS ORDERED: ISOVUE-370 76% 100ML VIAL As Ordered ONE (13:35)
[2022-05-12 17:00] VITALS: BP 127/67
== END 2022-05-12 17:10 | disposition home or self-care (01) ==
LOC: M ED 11:11
DX: R07.9 Chest pain, unspecified (principal); E11.9 Type 2 diabetes mellitus without complications; Z79.4 Long term (current) use of insulin; Z79.02 Long term (current) use of antithrombotics/antiplatelets; Z79.899 Other long term (current) drug therapy

== ENCOUNTER → 2022-05-17 | Outpatient (CLI) | payer MEDICAID, OTHER, SELFPAY | LOC: M RAD 11:24 | PROVIDERS: ATTEND Obstetrics & Gynecology | DX: R10.2 Pelvic and perineal pain (principal); Z90.710 Acquired absence of both cervix and uterus; Z90.721 Acquired absence of ovaries, unilateral ==

== ENCOUNTER → 2022-06-14 | Outpatient (CLI) | payer MEDICAID ==
[~2022-06-14] MED LIST changes: +LIPI80TA PO; +NOVOINJ3
== END ==
LOC: M LABSMTC 09:55
PROVIDERS: ATTEND Anesthesiology
DX: Z01.812 Encounter for preprocedural laboratory examination (principal); Z20.822 Contact with and (suspected) exposure to COVID-19

== ENCOUNTER 2022-10-17 07:36 | Day surgery (SDC) | payer MEDICAID, OTHER ==
[~2022-10-17] VITALS: Ht 167.6 cm; Wt 77.0 kg
[~2022-10-17 07:36] MED LIST changes: +GLIP10TA18 PO; -JANU100T; +JANU100T PO; +LIDOCAINE 2% 100MG/5ML SDV (FOR ANES.) As Ordered ONE; -NOVOINJ3; +NOVOINJ3 SC; +NS 1,000 ML IV ONE; +propofoL 200 MG/20 ML VIAL As Ordered ONE
[2022-10-17] MEDS ORDERED: LIDOCAINE 2% 100MG/5ML SDV (FOR ANES.) As Ordered ONE (08:20)
[2022-10-17] MEDS ORDERED: propofoL 200 MG/20 ML VIAL As Ordered ONE (08:20)
[2022-10-17 09:07] VITALS: BP 146/69; O2SAT 99
== END 2022-10-17 09:22 | disposition home or self-care (01) ==
LOC: M OPP 07:36
PROVIDERS: ATTEND Internal Medicine Gastroenterology
DX: Z12.11 Encounter for screening for malignant neoplasm of colon (principal); Z80.0 Family history of malignant neoplasm of digestive organs; K64.8 Other hemorrhoids; I10 Essential (primary) hypertension; E78.5 Hyperlipidemia, unspecified; E11.9 Type 2 diabetes mellitus without complications; G43.909 Migraine, unspecified, not intractable, without status migrainosus; F43.10 Post-traumatic stress disorder, unspecified; Z79.4 Long term (current) use of insulin; Z79.84 Long term (current) use of oral hypoglycemic drugs; Z79.899 Other long term (current) drug therapy; Z80.3 Family history of malignant neoplasm of breast; Z80.8 Family history of malignant neoplasm of other organs or systems

== ENCOUNTER → 2022-12-12 | Outpatient (CLI) | payer MEDICAID, OTHER ==
[~2022-12-12] MED LIST changes: -LIDOCAINE 2% 100MG/5ML SDV (FOR ANES.) As Ordered ONE; -NS 1,000 ML IV ONE; -propofoL 200 MG/20 ML VIAL As Ordered ONE
[2022-12-12 13:32] LABS: BASO # 0.1 10^3/uL (0.0-0.2); BASO % 0.8 % (0.0-1.0); EOS # 0.1 10^3/uL (0.0-0.5); EOS % 0.9 % (0.0-3.0); HEMATOCRIT 44.6 % (36.0-47.0); HEMOGLOBIN 14.9 g/dl (12.0-15.5); LYMPH # 2.3 10^3/uL (1.5-5.0); LYMPH % 30.2 % (24.0-44.0); MEAN CORPUSCULAR HEMOGLOBIN 29.3 pg (27.0-33.0); MEAN CORPUSCULAR HGB CONC 33.4 g/dl (32.0-36.5); MEAN CORPUSCULAR VOLUME 87.6 fl (80.0-96.0); MONO # 0.5 10^3/uL (0.0-0.8); MONO % 6.8 % (2.0-8.0); NEUTROPHILS # 4.6 10^3/uL (1.5-8.5); PLATELET COUNT, AUTOMATED 258 10^3/uL (150-450); RED BLOOD COUNT 5.09 10^6/uL (4.00-5.40); WHITE BLOOD COUNT 7.5 10^3/uL (4.0-10.0)
[2022-12-12 14:02] LABS: ALBUMIN 3.7 G/DL (3.2-5.2); ALKALINE PHOSPHATASE 153 U/L (46-116); ALT/SGPT 41 U/L (7.0-40); AST/SGOT 13 U/L (<34); BILIRUBIN,TOTAL 0.4 MG/DL (0.3-1.2); BLOOD UREA NITROGEN 18 MG/DL (9-23); CALCIUM LEVEL 9.9 MG/DL (8.5-10.1); CARBON DIOXIDE LEVEL 23 MMOL/L (20-31); CHLORIDE LEVEL 101 MMOL/L (98-107); CHOLESTEROL LEVEL 316 MG/DL (<200); CHOLESTEROL RISK RATIO 6.86 (<5); CREATININE FOR GFR 0.48 MG/DL (0.55-1.30); GLOMERULAR FILTRATION RATE > 60.0 (>51); GLUCOSE, FASTING 236 MG/DL (60-100); POTASSIUM SERUM 4.2 MMOL/L (3.5-5.1); SODIUM LEVEL 135 MMOL/L (136-145); THYROID STIMULATING HORMONE 1.683 uIU/ML (0.55-4.78); TOTAL PROTEIN 7.3 G/DL (5.7-8.2); TRIGLYCERIDES LEVEL 478 MG/DL (<150)
[2022-12-12 14:05] LABS: HEMOGLOBIN A1c 12.7 % (4.0-6.0)
== END ==
LOC: M LAB 12:46
PROVIDERS: ATTEND Nurse Practitioner Adult Health
DX: E11.9 Type 2 diabetes mellitus without complications (principal); R53.83 Other fatigue; I10 Essential (primary) hypertension

== ENCOUNTER → 2023-05-30 | Outpatient (CLI) | payer OTHER ==
[~2023-05-30] MED LIST changes: +GLIP5TAB17 PO; -GLIP5TAB8 PO
== END ==
LOC: M RAD 09:43
PROVIDERS: ATTEND Physician Assistant Medical
DX: R19.00 Intra-abdominal and pelvic swelling, mass and lump, unspecified site (principal); K76.0 Fatty (change of) liver, not elsewhere classified; Z90.710 Acquired absence of both cervix and uterus; Z90.721 Acquired absence of ovaries, unilateral

== ENCOUNTER 2024-12-09 07:54 | Emergency (ER) | payer OTHER ==
[~2024-12-09] VITALS: Ht 167.6 cm; Wt 75.0 kg
[~2024-12-09 07:54] MED LIST changes: +ACET325C5 PO; +ATOR-398 PO; +BENA25CA4 PO; +GLIP-320 PO; -GLIP10TA18 PO; +IBUP-1114 PO; -LIPI80TA PO; +LISI5TAB11 PO
[2024-12-09] MEDS ORDERED: INVO300T PO (08:04)
[2024-12-09] MEDS ORDERED: DULA3PEN SUBQ (08:04)
[2024-12-09] MEDS ORDERED: ROSU40TA81 PO (08:04)
[2024-12-09 09:10] LABS: BASO # 0.1 10^3/uL (0.0-0.2); BASO % 0.7 % (0.0-1.0); EOS # 0.1 10^3/uL (0.0-0.5); EOS % 1.1 % (0.0-3.0); LYMPH # 2.0 10^3/uL (1.5-5.0); LYMPH % 22.7 % (24.0-44.0); MONO # 0.6 10^3/uL (0.0-0.8); MONO % 6.2 % (2.0-8.0); NEUTROPHILS # 6.2 10^3/uL (1.5-8.5); NEUTROPHILS % 69.1 % (36.0-66.0); PLATELET COUNT, AUTOMATED 250 10^3/uL (150-450)
[2024-12-09] MEDS: MECLIZINE 25 MG TABLET PO ONE (09:17)
[2024-12-09] MEDS: NS (Normal Saline) 0.9% 1,000 ML IV SCH (09:17)
[2024-12-09 09:30] LABS: KETONE, URINE AUTO RFX NEGATIVE (NEGATIVE); LEUKOCYTE ESTERASE UR AUTO RFX NEGATIVE (NEGATIVE); NITRITE, URINE AUTO RFX NEGATIVE (NEGATIVE); RBC, URINE AUTO RFX 0 /HPF (0-3); SQUAM EPITHELIAL CELL UR AURFX 1 /HPF (0-6); WBC, URINE AUTO RFX 1 /HPF (0-3)
[2024-12-09 09:37] LABS: ALT/SGPT 25 U/L (7.0-40); AST/SGOT 14 U/L (<34); CALCIUM LEVEL 9.0 MG/DL (8.5-10.1); CARBON DIOXIDE LEVEL 24 MMOL/L (20-31); CHLORIDE LEVEL 103 MMOL/L (98-107); CK-MB VALUE MASS 2.2 NG/ML (<3.6); CREATININE FOR GFR 0.56 MG/DL (0.55-1.30); GLOMERULAR FILTRATION RATE > 90.0 (>51); POTASSIUM SERUM 4.7 MMOL/L (3.5-5.1); SODIUM LEVEL 140 MMOL/L (136-145)
[2024-12-09 09:43] LABS: CPK CREATINE PHOSPHOKINASE 102 U/L (34-145); MB/CK RELATIVE INDEX 2.15 (< OR =4)
[2024-12-09 10:00] VITALS: BP 116/58; O2SAT 98
[2024-12-09] MEDS ORDERED: MECL-86 PO (10:03)
[2024-12-09 10:04] VITALS: TEMP 96.6
[2024-12-09] MEDS ORDERED: HOME MED LIST COMPLETE! XX SCH (10:05)
== END 2024-12-09 10:11 | disposition home or self-care (01) ==
LOC: M ED 07:54
DX: E11.649 Type 2 diabetes mellitus with hypoglycemia without coma (principal); I51.9 Heart disease, unspecified; Z79.4 Long term (current) use of insulin

== ENCOUNTER → 2025-03-28 | Outpatient (CLI) | payer OTHER ==
[~2025-03-28] MED LIST changes: +DULA3PEN SUBQ; +MECL-86 PO; +ROSU40TA81 PO
[2025-03-28 14:45] LABS: BASO # 0.1 10^3/uL (0.0-0.2); BASO % 0.7 % (0.0-1.0); EOS # 0.1 10^3/uL (0.0-0.5); EOS % 1.5 % (0.0-3.0); LYMPH # 2.8 10^3/uL (1.5-5.0); LYMPH % 38.3 % (24.0-44.0); MONO # 0.6 10^3/uL (0.0-0.8); MONO % 7.8 % (2.0-8.0); NEUTROPHILS # 3.7 10^3/uL (1.5-8.5); NEUTROPHILS % 51.4 % (36.0-66.0); PLATELET COUNT, AUTOMATED 259 10^3/uL (150-450)
[2025-03-28 15:00] LABS: ESTIMATED AVERAGE GLUCOSE 263.0 MG/DL (60-110)
[2025-03-28 15:05] LABS: ALT/SGPT 29 U/L (7.0-40); AST/SGOT 15 U/L (<34); CALCIUM LEVEL 9.5 MG/DL (8.5-10.1); CARBON DIOXIDE LEVEL 29 MMOL/L (20-31); CHLORIDE LEVEL 106 MMOL/L (98-107); CHOLESTEROL LEVEL 129 MG/DL (<200); CHOLESTEROL RISK RATIO 2.89 (<5); CREATININE FOR GFR 0.60 MG/DL (0.55-1.30); GLOMERULAR FILTRATION RATE > 90.0 (>51); LDL CHOLESTEROL 61.6 MG/DL (<100); NON-HDL-C 84.4 MG/DL; POTASSIUM SERUM 4.3 MMOL/L (3.5-5.1); SODIUM LEVEL 143 MMOL/L (136-145); TRIGLYCERIDES LEVEL 114 MG/DL (<150)
[2025-03-28 15:09] LABS: FREE T4 1.16 NG/DL (0.89-1.76)
== END ==
LOC: M LAB 13:40
DX: I10 Essential (primary) hypertension (principal)